=== PATIENT | female | born 1995 | race Caucasian/White ===

== ENCOUNTER 2023-11-03 14:26 | Outpatient (CLI) | payer OTHER ==
[~2023-11-03 14:26] MED LIST: CLOTRIM ANTIFUNGAL1% TP; PRENATAL TABLET PO
== END 2023-11-03 16:35 ==
LOC: LDRO 14:26
DX: O47.9 False labor, unspecified (principal); Z3A.00 Weeks of gestation of pregnancy not specified

== ENCOUNTER 2023-12-03 13:15 | Inpatient (IN) | payer OTHER ==
[2023-12-03] VITALS (17 sets, daily range): BP systolic 76–149; BP diastolic 41–89; PULSE 74–107; TEMP 97.6–98
[~2023-12-03] VITALS: Ht 157.5 cm; Wt 101.4 kg
--- NOTE | 2023-12-03 13:25 | NUR ---
PATIENT TO UNIT VIA WHEELCHAIR WITH MEI. PATIENT COMPLAINS OF CONTRACITONS SINCE YESTERDAY THAT HAVE GOTTEN MORE CONSISTENT. PATIENT DENIES LEAKING OF FLUID OR VAGINAL BLEEDING, AND REPORTS GOOD MOVEMENT. PATIENT ASSISTED INTO CLEAN GOWN, EFM AND TOCO PLACED AND TRACING. E - NOTIFIED, ASSESSMENTS COMPLETED.
[2023-12-03] MEDS ORDERED: LR & Oxytocin 500 ML IV SCH (13:45)
[2023-12-03] MEDS ORDERED: LR 1,000 ML IV SCH (13:45)
[2023-12-03] MEDS ORDERED: Chloroprocaine PF 3% (30 MG/ML) 20 ML VIAL ONE (14:40)
--- NOTE | 2023-12-03 14:46 | NUR ---
THIS RN ASSUMES CARE FROM [facility]. PT SITTING ON EDGE OF BED FOR EPIDURAL PLACEMENT, LR BOLUS INFUSING. MATERNAL VSS. DIFFICULTY TRACING EFM DUE TO MATERNAL POSITIONING. UNABLE TO BREATHE AND TALK THROUGH CTX, TEARFUL. 1446: SS PER ISIDRA TRUJILLO. PT TOLERATED PROCEDURE WELL.
[2023-12-03] MEDS ORDERED: ePHEDrine 50 MG/10 ML VIAL IV PRN (15:00)
[2023-12-03] MEDS ORDERED: diphenhydrAMINE 25 MG CAP PO PRN (15:00)
[2023-12-03] MEDS ORDERED: Naloxone 0.4 MG/ML VIAL IV PRN ×2 (15:00→16:45)
[2023-12-03] MEDS ORDERED: diphenhydrAMINE 50 MG/ML 1 ML VIAL IV PRN (15:00)
[2023-12-03] MEDS ORDERED: Ondansetron 4 MG/2 ML VIAL IV PRN (15:00)
[2023-12-03 15:23] LABS: BASO % 0.2 % (0.0-2.0); EOS # 0.1 K/mm3 (0.0-0.7); EOS % 0.6 % (0.0-4.0); GRAN # 9.1 K/mm3 (1.4-6.5); GRAN % 75.5 % (42.2-75.2); HEMOGLOBIN 10.5 g/dl (12.5-16.0); LYMPH # 2.1 K/mm3 (1.2-3.4); LYMPH % 17.7 % (20.0-51.0); MEAN CELL VOLUME 83 fl (80.0-100.0); MEAN CORPUSCULAR HEMOGLOBIN 26 pg (27-31); MEAN CORPUSCULAR HGB CONC 31 g/dl (33.0-37.0); MEAN PLATELET VOLUME 11.7 fl (7.4-10.4); MONO # 0.7 K/mm3 (0.1-0.6); MONO % 5.4 % (1.7-9.3); PLATELET COUNT 245 K/mm3 (130-400); RED BLOOD COUNT 4.11 M/mm3 (4.10-5.30); REDCELL DISTRIBUTION WIDTH-CV 14.6 % (11.5-14.5)
[2023-12-03 15:24] LABS: HEMATOCRIT 34.1 % (37.0-47.0)
--- NOTE | 2023-12-03 16:07 | NUR ---
1555: ON UNIT THROUGHOUT LABOR, SVE COMPLETE/+2 AT THIS TIME. ALL STAFF NOTIFIED AND ROOM PREPARED FOR DELIVERY. 1607: OF VIABLE FEMALE INFANT AT THIS TIME PER . INFANT PLACED ON MATERNAL ABDOMEN. UPON PULSATION, CORD CLAMPED X2 AND CUT BY PER PARENTS REQUEST. STRONG CRY NOTED AT DELIVERY. INFANT PLACED SKIN TO SKIN WITH MOTHER AND CARE OF ASSUMED BY [facility]. 1611: OF INTACT PLACENTA PER . PITOCIN BOLUS INFUSING PER PROTOCOL. MATERNAL LOCHIA WNL, FUNDUS FIRM AT UMBILICUS. BEGINS REPAIR OF SECOND DEGREE PERINEAL LACERATION. PT DENIES PAIN. TOLERATING WELL. WILL CONTINUE WITH PP CARES PER PROTOCOL
[2023-12-03] MEDS ORDERED: Magnes Hydrox (MOM) 80 MG/ML 30 ML CUP PO PRN (16:30)
[2023-12-03] MEDS ORDERED: Loratadine 10 MG TAB PO PRN (16:30)
[2023-12-03] MEDS ORDERED: Phenylephrine/Mineral Oil/Petrolatum 57 GM TUBE RC PRN (16:45)
[2023-12-03] MEDS ORDERED: Ibuprofen 600 MG TAB PO SCH (16:45)
[2023-12-03] MEDS ORDERED: oxyCODONE 5 MG TAB PO PRN (16:45)
[2023-12-03] MEDS ORDERED: Mag/Al Hydrox/Simeth Susp 30 ML CUP PO PRN (16:45)
[2023-12-03] MEDS ORDERED: Witch Hazel 50% Pads Bulk TUB TP PRN (16:45)
[2023-12-03] MEDS ORDERED: Acetaminophen 500 MG TAB PO SCH (16:45)
[2023-12-03] MEDS ORDERED: Measles/Mumps/Rubella Virus Vaccine Live w Diluent 0.5 ML VIAL SQ SCH (16:45)
[2023-12-03] MEDS ORDERED: Sennosides/Docusate 8.6-50 MG TAB PO SCH (17:00)
[2023-12-03] MEDS ORDERED: traZODone 50 MG TAB PO PRN (21:00)
[2023-12-04] VITALS: BP 110/65; PULSE 90; TEMP 98.6
[2023-12-04 03:00] VITALS: BP 113/63; PULSE 93; TEMP 97.8
[2023-12-04 06:57] LABS: HEMATOCRIT 28.5 % (37.0-47.0); HEMOGLOBIN 8.9 g/dl (12.5-16.0)
[2023-12-04 08:45] VITALS: BP 99/53; PULSE 77; TEMP 98.2
[2023-12-04] MEDS ORDERED: ROXICODONE 55 MG/TAB PO (08:49)
[2023-12-04] MEDS ORDERED: IBU600 MG PO (08:49)
[2023-12-04] MEDS ORDERED: TYLENOL 500MG500 MG PO (08:50)
[2023-12-04] MEDS ORDERED: Ferrous Sulfate 325 MG TAB PO SCH (08:52)
--- NOTE | 2023-12-04 09:29 | NUR ---
Initial visit attempt; Family sleeping, Outside Installer Apprentice left card offering congratulations and God's blessings for the of their daughter and information regarding the availability of Spiritual Care at [facility].
[2023-12-04 11:05] VITALS: BP 100/56; PULSE 80; TEMP 98.4
--- NOTE | 2023-12-04 11:07 | NUR ---
Ibuprofen 600 mg, tylenol 1000 mg given per request and as ordered.
--- NOTE | 2023-12-04 14:27 | NUR ---
Roxycodone 5 mg given as ordered and per request.
[2023-12-04 16:45] VITALS: BP 104/57; PULSE 75; TEMP 98.1
--- NOTE | 2023-12-04 17:01 | NUR ---
Rests in bed, alert. Ibuprofen 600 mg, tylenol 1000 mg given as ordered.
[2023-12-04 20:30] VITALS: BP 121/70; PULSE 92; TEMP 98.1
[2023-12-05 08:35] VITALS: BP 119/83; PULSE 96; TEMP 98.5
--- NOTE | 2023-12-05 12:30 | NUR ---
Discharge instructions and follow up care reviewed with pt and at the bedside. Both verbalized an understanding, agreed with the plan and states no questions or concerns at this time.
== END 2023-12-05 13:10 | disposition home or self-care (01) | DRG 806 ==
LOC: LDRO 13:15 → OB 13:40 → LDR 13:40 → OB 18:00
PROVIDERS: ADMIT Obstetrics & Gynecology
PROC: 10E0XZZ Delivery of Products of Conception, External Approach (ICD-10-PCS; principal; 2023-12-03)
PROC: 0KQM0ZZ Repair Perineum Muscle, Open Approach (ICD-10-PCS; 2023-12-03)
DX: O99.344 Other mental disorders complicating childbirth (principal); D62 Acute posthemorrhagic anemia; Z37.0 Single live birth; O72.1 Other immediate postpartum hemorrhage; F41.9 Anxiety disorder, unspecified; F32.A Depression, unspecified; O99.214 Obesity complicating childbirth; O70.1 Second degree perineal laceration during delivery; O90.81 Anemia of the puerperium; Z3A.38 38 weeks gestation of pregnancy
CPT/HCPCS: J2401; J2795; J7120